=== PATIENT | female | born 1990 | race Caucasian/White ===

== ENCOUNTER 2018-09-01 11:12 | Emergency (ER) | payer OTHER ==
[~2018-09-01] VITALS: Ht 160 cm; Wt 57.6 kg
[2018-09-01] MEDS ORDERED: IBUPROFEN800 MG PO (14:11)
[2018-09-01] MEDS ORDERED: OSEL75CA PO (14:11)
[2018-09-01] MEDS ORDERED: TUSSI PRES-B L120 M1 PO (14:11)
[2018-09-01] MEDS ORDERED: AMOX-CLAV 875-1 EACH PO (14:11)
== END 2018-09-01 14:27 | disposition home or self-care (01) ==
LOC: ER 11:12
DX: B34.9 Viral infection, unspecified (principal)